=== PATIENT | male | born 1980 | race Caucasian/White ===

== ENCOUNTER 2023-11-22 21:18 | Emergency (ER) | payer MEDICAID ==
[~2023-11-22] VITALS: Ht 180.3 cm; Wt 79.0 kg
[2023-11-22 21:24] VITALS: O2SAT 97
[2023-11-22] MEDS: SODIUM CHLORIDE 0.9% 1,000 ML IV ONE (23:23)
[2023-11-22] MEDS ORDERED: LORAZEPAM 2MG/ML INJ IV ONE (23:30)
[2023-11-23 00:55] LABS: BASOPHILS % 1.2 % (0.0-2.0); EOSINOPHILS % 7.7 % (0.0-5.0); HEMATOCRIT. 41.1 % (42.0-52.0); HEMOGLOBIN. 14.1 g/dL (14.0-18.0); LYMPHOCYTES % 28.9 % (20.0-50.0); MEAN CORPUSCULAR HEMOGLOBIN 32.3 pg (28.0-32.0); MEAN CORPUSCULAR HGB CONC 34.2 g/dL (31.0-37.0); MEAN CORPUSCULAR VOLUME 94.4 fL (80.0-94.0); MEAN PLATELET VOLUME 7.2 fl (7.4-10.4); MONOCYTES % 8.5 % (2.0-8.0); NEUTROPHILS % 53.7 % (40.0-76.0); PLATELET 291 x1000/uL (130-400); RED BLOOD CELL COUNT 4.35 mill/uL (4.7-6.1); RED CELL DISTRIBUTION WIDTH 13.8 % (11.6-14.6); WHITE BLOOD COUNT 8.8 x1000/uL (4.5-11.0)
[2023-11-23 01:00] LABS: CHLORIDE 107 mEq/L (98-107); POTASSIUM 4.3 mEq/L (3.5-5.1); SODIUM 140 mEq/L (136-145)
[2023-11-23 01:01] LABS: CARBON DIOXIDE 28 mEq/L (21-32)
[2023-11-23 01:02] LABS: CALCIUM 9.5 mg/dL (8.7-10.4)
[2023-11-23 01:06] LABS: CREATININE 0.7 mg/dL (0.6-1.3)
[2023-11-23 01:07] LABS: GLUCOSE 83 mg/dL (70-105); UREA NITROGEN BLOOD 17 mg/dL (9-23)
[2023-11-23 01:08] LABS: ALANINE AMINOTRANSFERASE 16 IU/L (10-49); ALBUMIN 4.4 g/dL (3.2-4.8); ASPARTATE AMINOTRANSFERASE 17 IU/L (<34)
[2023-11-23 01:09] LABS: BILIRUBIN DIRECT 0.2 mg/dL (<=3.0); BILIRUBIN TOTAL 0.4 mg/dL (0.1-1.0); PROTEIN TOTAL 7.1 g/dL (6.0-8.3)
[2023-11-23 01:12] LABS: ETHANOL BLOOD < 10 mg/dL (<10)
[2023-11-23 03:25] VITALS: BP 124/67; PULSE 76; RESP 18; TEMP 36.94740; O2SAT 99
== END 2023-11-23 04:06 | disposition home or self-care (01) ==
LOC: ER 21:18
DX: F10.90 Alcohol use, unspecified, uncomplicated (principal); F14.90 Cocaine use, unspecified, uncomplicated; F31.9 Bipolar disorder, unspecified; Z91.013 Allergy to seafood; Y90.0 Blood alcohol level of less than 20 mg/100 ml
CPT/HCPCS: 82962; 36415; 96360; 99283; 80076; 80048; 80320; 85025; J7030; G0480